=== PATIENT | female | born 1990 | race Caucasian/White ===

== ENCOUNTER 2018-11-29 17:33 | Emergency (ER) | payer SELFPAY ==
[~2018-11-29] VITALS: Ht 189.2 cm; Wt 90.7 kg
[2018-11-29 17:41] VITALS: BP 149/93
--- NOTE | 2018-11-29 17:48 | NUR ---
PT AMB TO BED 9 WITH STEADY GAIT
--- NOTE | 2018-11-29 18:02 | NUR ---
PT BIB SELF FOR REDNESS, DRAINAGE TO RT FOREARM S/P TATTOO LAST SATURDAY. REDNESS IS LOCALIZED TO TATTOO AREA ON FOREARM. PT DENIES FEVER OR CHILLS.
[2018-11-29 19:30] VITALS: BP 133/84
--- NOTE | 2018-11-29 19:30 | NUR ---
DISCHARGE PAPERS GIVEN TO PT. RX OF KEFLEX AND MUPIROCIN GIVEN. SIDE EFFECTS EXPLAINED. INSTRUCTED TO F/U WITH PCP AND WHEN TO RETURN TO ER. PT STATES 3/10 PAIN BUT TOLLERABLE. PT VERBALIZED UNDERSTANDING OF DC INSTRUCTIONS. ALL QUESTIONS ANSWERED.
== END 2018-11-29 19:30 | disposition home or self-care (01) ==
LOC: MED 17:33
DX: L03.113 Cellulitis of right upper limb (principal); F12.10 Cannabis abuse, uncomplicated
CPT/HCPCS: 99283